=== PATIENT | female | born 1980 | race American Indian/Alaskan Native ===

== ENCOUNTER 2019-12-30 18:38 | Emergency (ER) | payer MEDICAID ==
[~2019-12-30] VITALS: Ht 165.1 cm; Wt 72.0 kg
[2019-12-30] MEDS ORDERED: IBUP-1985 PO (20:28)
[2019-12-30] MEDS ORDERED: HYDR-3965 PO (20:28)
[2019-12-30] MEDS ORDERED: morphine 4 MG/ML inj SYRINge IM ONE (20:40)
[2019-12-30 20:50] VITALS: BP 136/95
== END 2019-12-30 21:03 | disposition home or self-care (01) ==
LOC: ER 18:39
DX: S80.11XA Contusion of right lower leg, initial encounter (principal); M25.571 Pain in right ankle and joints of right foot; M79.89 Other specified soft tissue disorders; W19.XXXA Unspecified fall, initial encounter; Y93.89 Activity, other specified; Y92.89 Other specified places as the place of occurrence of the external cause; Y99.8 Other external cause status
CPT/HCPCS: 29505; 73564; 73590; 73610; 96372; 99284; J2270